=== PATIENT | female | born 1950 | race African-American/Black ===

== ENCOUNTER 2018-11-20 12:57 | Inpatient (IN) | payer BC ==
[~2018-11-20] VITALS: Ht 165.1 cm; Wt 81.6 kg
[2018-11-20] MEDS ORDERED: VISCOUS LIDOCAINE 2% 15 ML UDC MM STA (15:06)
[2018-11-20] MEDS ORDERED: MAGNESIUM/ALUMINUM HYDROXIDE/SIMETHICONE 30ML UDC PO ONE (15:15)
[2018-11-20] MEDS ORDERED: FAMOTIDINE 20MG/2ML VIAL IV ONE (15:15)
[2018-11-20 16:20] LABS: BASOPHILS % 0.5 % (0.0-2.0); EOSINOPHILS % 0.9 % (0.0-5.0); HEMOGLOBIN. 12.8 g/dL (12.0-16.0); LYMPHOCYTES % 37.6 % (20.0-50.0); MEAN CORPUSCULAR HEMOGLOBIN 28.9 pg (28.0-32.0); MEAN CORPUSCULAR VOLUME 85.6 fL (81.0-99.0); MEAN PLATELET VOLUME 8.7 fl (7.4-10.4); MONOCYTES % 8.2 % (2.0-8.0); NEUTROPHILS % 52.8 % (40.0-76.0); PLATELET 275 x1000/uL (130-400); RED BLOOD CELL COUNT 4.44 mill/uL (4.2-5.4); RED CELL DISTRIBUTION WIDTH 14.1 % (11.6-14.6)
[2018-11-20 16:23] LABS: CHLORIDE 107 mEq/L (98-107)
[2018-11-20] MEDS ORDERED: POTASSIUM CHLORIDE INJ 40 MEQ in DEXT 5% WATER 250 ML IV ONE (16:45)
[2018-11-20] MEDS ORDERED: ASPIRIN 325MG TABLET PO ONE (18:15)
[2018-11-20] MEDS ORDERED: IOHEXOL-350 100 ML BOTTLE ONE (18:26)
[2018-11-20] MEDS ORDERED: DIPHENHYDRAMINE 50MG/ML VIAL IV PRN (20:15)
[2018-11-20] MEDS ORDERED: MAGNESIUM/ALUMINUM HYDROXIDE/SIMETHICONE 30ML UDC PO PRN (20:15)
[2018-11-20] MEDS ORDERED: CLONIDINE 0.1MG TABLET PO PRN (20:15)
[2018-11-20] MEDS ORDERED: NA PHOS,M-B/NA PHOS,DI-BA ENEMA 118ML PR PRN (20:15)
[2018-11-20] MEDS ORDERED: GUAIFENESIN 200MG/10ML SUGAR FREE UDC PO PRN (20:15)
[2018-11-20] MEDS ORDERED: HYDROCODONE/ACETAMINOPHEN 5/325MG TABLET PO PRN (20:15)
[2018-11-20] MEDS ORDERED: DOCUSATE SODIUM 100MG CAPSULE PO PRN (20:15)
[2018-11-20] MEDS ORDERED: ACETAMINOPHEN 650MG SUPP PR PRN (20:15)
[2018-11-20] MEDS ORDERED: ONDANSETRON HCL 4MG/2ML INJ IV PRN (20:15)
[2018-11-20] MEDS ORDERED: IPRATROPIUM/ALBUTEROL 0.5-3(2.5)MG/3ML NEB HHN PRN (20:15)
[2018-11-20] MEDS ORDERED: ACETAMINOPHEN 650MG/20.3ML UDC GT PRN (20:15)
[2018-11-20] MEDS ORDERED: POTASSIUM CHLORIDE 20MEQ TABLET SR PO NR (20:15)
[2018-11-20 21:45] VITALS: BP 159/78
[2018-11-20] MEDS ORDERED: AMLO5TAB88 MT (22:41)
[2018-11-20] MEDS ORDERED: OLME40TA18 MT (22:41)
[2018-11-20] MEDS ORDERED: GLIP10TA10 MT (22:41)
[2018-11-20] MEDS ORDERED: PROP40TA7 PO (22:41)
[2018-11-20] MEDS ORDERED: PROP40TA7 MT (22:41)
[2018-11-20] MEDS ORDERED: SITA100T11 MT (22:41)
[2018-11-20] MEDS: ENOXAPARIN 40MG/0.4ML SYR SUBCUT SCH (23:28)
[2018-11-21] VITALS (7 sets, daily range): BP systolic 147–188; BP diastolic 56–93
[2018-11-21] MEDS: SODIUM CHLORIDE 0.9% INJ 3ML FLUSH IVF SCH ×4 (00:25→22:00)
[2018-11-21 00:58] LABS: CREATINE KINASE 141 IU/L (26-192)
[2018-11-21 01:03] LABS: CREATINE KINASE MB FRACTION 1.4 ng/mL (0.5-3.6)
[2018-11-21 04:56] LABS: CLARITY URINE CLEAR (CLEAR); COLOR URINE YELLOW (YELLOW); KETONES URINE NEGATIVE (NEGATIVE); LEUKOCYTE ESTERASE URINE NEGATIVE (NEGATIVE); NITRITE URINE NEGATIVE (NEGATIVE); OCCULT BLOOD URINE NEGATIVE (NEGATIVE); PH URINE 6.5 (4.5-8.0); PROTEIN URINE NEGATIVE (NEGATIVE); SPECIFIC GRAVITY URINE 1.052 (1.005-1.030)
[2018-11-21 05:05] LABS: *AMPHETAMINES SCREEN URINE NEGATIVE (NEGATIVE); *BARBITURATES SCREEN URINE NEGATIVE (NEGATIVE); *BENZODIAZEPINES SCREEN URINE NEGATIVE (NEGATIVE); CANNABINOID URINE SCREEN NEGATIVE (NEGATIVE); METHADONE URINE SCREEN NEGATIVE (NEGATIVE); OPIATES URINE SCREEN PRESUMTIVE POSITIVE (NEGATIVE); PHENCYCLIDINE URINE SCREEN NEGATIVE (NEGATIVE)
[2018-11-21 05:06] LABS: *COCAINE SCREEN URINE NEGATIVE (NEGATIVE)
[2018-11-21 07:30] LABS: BASOPHILS % 0.5 % (0.0-2.0); EOSINOPHILS % 1.6 % (0.0-5.0); HEMATOCRIT. 36.7 % (36.0-48.0); HEMOGLOBIN. 12.4 g/dL (12.0-16.0); LYMPHOCYTES % 34.1 % (20.0-50.0); MEAN CORPUSCULAR HEMOGLOBIN 28.9 pg (28.0-32.0); MEAN CORPUSCULAR VOLUME 85.5 fL (81.0-99.0); MEAN PLATELET VOLUME 8.5 fl (7.4-10.4); MONOCYTES % 10.5 % (2.0-8.0); NEUTROPHILS % 53.3 % (40.0-76.0); PLATELET 260 x1000/uL (130-400)
[2018-11-21 07:40] LABS: CHLORIDE 109 mEq/L (98-107)
[2018-11-21 07:49] LABS: HDL CHOLESTEROL 41 mg/dL (40-59)
[2018-11-21 07:51] LABS: LDL CHOLESTEROL 149 mg/dL (5-100)
[2018-11-21 07:56] LABS: CREATINE KINASE 118 IU/L (26-192); CREATINE KINASE MB FRACTION < 1.0 ng/mL (0.5-3.6)
[2018-11-21] MEDS: LISINOPRIL 5MG TABLET PO SCH (10:08)
[2018-11-21] MEDS: AMLODIPINE 5MG TABLET PO SCH ×2 (10:08→20:51)
[2018-11-21] MEDS: METOPROLOL TARTRATE 25MG TABLET PO SCH ×2 (10:09→20:51)
[2018-11-21] MEDS: ACETAMINOPHEN 325MG TABLET PO PRN ×2 (12:24→21:10)
[2018-11-21] MEDS: ENOXAPARIN 40MG/0.4ML SYR SUBCUT SCH (20:50)
[2018-11-21] MEDS: CAPSAICIN 0.025% CREAM 60GM TOP SCH (20:50)
[2018-11-21] MEDS ORDERED: ATORVASTATIN CALCIUM 40MG TABLET PO SCH (21:00)
[2018-11-22] VITALS: BP 147/68
[2018-11-22] MEDS: CAPSAICIN 0.025% CREAM 60GM TOP SCH ×3 (00:46→13:34)
[2018-11-22 04:00] VITALS: BP 152/70
[2018-11-22] MEDS: SODIUM CHLORIDE 0.9% INJ 3ML FLUSH IVF SCH (06:04)
[2018-11-22 08:00] VITALS: BP 179/86
[2018-11-22] MEDS ORDERED: REGADENOSON 0.4 MG/5 ML IV ONE ×2 (08:45→09:17)
[2018-11-22] MEDS: LISINOPRIL 5MG TABLET PO SCH (10:21)
[2018-11-22] MEDS: METOPROLOL TARTRATE 25MG TABLET PO SCH (10:21)
[2018-11-22] MEDS: AMLODIPINE 5MG TABLET PO SCH (10:22)
[2018-11-22] MEDS: ACETAMINOPHEN 325MG TABLET PO PRN (10:24)
[2018-11-22] MEDS ORDERED: LISINOPRIL 10MG TABLET PO SCH (11:45)
[2018-11-22 12:00] VITALS: BP 144/66
[2018-11-22 15:34] LABS: CLARITY URINE CLOUDY (CLEAR); COLOR URINE YELLOW (YELLOW); KETONES URINE 1+ (NEGATIVE); LEUKOCYTE ESTERASE URINE 3+ (NEGATIVE); NITRITE URINE NEGATIVE (NEGATIVE); OCCULT BLOOD URINE NEGATIVE (NEGATIVE); PH URINE 6.5 (4.5-8.0); PROTEIN URINE 1+ (NEGATIVE); SPECIFIC GRAVITY URINE 1.017 (1.005-1.030); UROBILINOGEN URINE 0.2 E.U./dL (0.2-1.0)
[2018-11-22 16:15] LABS: HEMATOCRIT 39.6 % (36.0-48.0); HEMOGLOBIN 13.6 g/dL (12.0-16.0); MEAN CORPUSCULAR HEMOGLOBIN 29.3 pg (28.0-32.0); MEAN CORPUSCULAR VOLUME 85.5 fL (81.0-99.0); PLATELET 260 x1000/uL (130-400); RED BLOOD CELL COUNT 4.63 mill/uL (4.2-5.4); RED CELL DISTRIBUTION WIDTH 13.9 % (11.6-14.6)
[2018-11-22 16:31] LABS: CHLORIDE 103 mEq/L (98-107)
[2018-11-22] MEDS ORDERED: LEVO500T2 MT (17:26)
[2018-11-22 17:48] VITALS: BP 145/75
[2018-11-22] MEDS ORDERED: LEVOFLOXACIN 500MG PREMIX 100 ML IV SCH (18:30)
[2018-11-22] MEDS ORDERED: METOPROLOL TARTRATE 50MG TABLET PO SCH (21:00)
== END 2018-11-22 19:10 | disposition home or self-care (01) | DRG 392 ==
LOC: ER 12:57 → 6WST 19:31 → ENRESERV 19:56
PROVIDERS: ADMIT Family Medicine; ATTEND Family Medicine
DX: K21.9 Gastro-esophageal reflux disease without esophagitis (principal); I31.3 Pericardial effusion (noninflammatory); E78.5 Hyperlipidemia, unspecified; F41.9 Anxiety disorder, unspecified; I11.9 Hypertensive heart disease without heart failure; I25.10 Atherosclerotic heart disease of native coronary artery without angina pectoris; K76.0 Fatty (change of) liver, not elsewhere classified; N28.1 Cyst of kidney, acquired; E11.9 Type 2 diabetes mellitus without complications; E87.6 Hypokalemia; Z82.49 Family history of ischemic heart disease and other diseases of the circulatory system; Z90.49 Acquired absence of other specified parts of digestive tract; Z90.710 Acquired absence of both cervix and uterus; Z88.0 Allergy status to penicillin; Z88.5 Allergy status to narcotic agent; E66.9 Obesity, unspecified; Z68.30 Body mass index [BMI] 30.0-30.9, adult; Z79.4 Long term (current) use of insulin
CPT/HCPCS: 36415; 71045; 71275; 78452; 80048; 80061; 80305; 81003; 82550; 82553; 82962; 83880; 84484; 85027; 85651; 86038; 86430; 87804; 93005; 93017; 93306; 96374; 99285; A9500; J1650; J1956; J2785; J3480; J3490; J7060; Q9967

== ENCOUNTER → 2019-04-21 | Day surgery (SDC) | payer BC ==
[~2019-04-21] MED LIST: AMLO5TAB88 MT; GLIP10TA10 MT; LEVO500T2 MT; LIDOCAINE HCL/EPINEPHRINE 1%-EPI 1:100,000 20 ML VIAL ONE; OLME40TA18 MT; PROP40TA7 MT; PROP40TA7 PO; SITA100T11 MT; SODIUM BICARBONATE 4% (2.4MEQ) 5ML VIAL IV ONE
== END | disposition home or self-care (01) ==
LOC: RAD 09:32
PROVIDERS: ATTEND Surgery
DX: N63.20 Unspecified lump in the left breast, unspecified quadrant (principal); Z88.0 Allergy status to penicillin; Z88.6 Allergy status to analgesic agent; Z82.49 Family history of ischemic heart disease and other diseases of the circulatory system
CPT/HCPCS: 19083; 88305; J3490